=== PATIENT | female | born 2000 | race Caucasian/White ===

== ENCOUNTER 2021-04-19 17:27 | Emergency (ER) | payer BC ==
[~2021-04-19] VITALS: Ht 167.6 cm; Wt 68.2 kg
[2021-04-19 20:17] LABS: BASO % 0.3 % (0.0-2.0); EOS # 0.1 K/mm3 (0.0-0.7); EOS % 0.5 % (0-4.0); GRAN % 85.4 % (42.2-75.2); HEMATOCRIT 42.9 % (35.0-45.0); LYMPH # 0.8 K/mm3 (1.2-3.4); MEAN CELL VOLUME 87 fl (80.0-95.0); MEAN CORPUSCULAR HEMOGLOBIN 28 pg (26.0-32.0); MEAN CORPUSCULAR HGB CONC 33 g/dl (33.0-37.0); MEAN PLATELET VOLUME 9.7 fl (7.4-10.4); MONO # 0.5 K/mm3 (0.1-0.6); MONO % 5.5 % (1.7-9.3); PLATELET COUNT 213 K/mm3 (130-400); RED BLOOD COUNT 4.94 M/mm3 (4.10-5.30); REDCELL DISTRIBUTION WIDTH-CV 14.1 % (11.5-14.5)
[2021-04-19 20:33] LABS: ALBUMIN 3.8 gm/dL (3.5-5.0); BILIRUBIN,TOTAL 0.3 mg/dL (0.2-1.2); C-REACTIVE PROTEIN 3.5 mg/dL (0.00-0.50); CALCIUM 9.3 mg/dL (8.4-10.2); CREATININE, serum 0.83 mg/dL (0.57-1.11); POTASSIUM 3.9 mmol/L (3.5-4.5); TOTAL PROTEIN 7.4 gm/dL (6.2-8.1)
[2021-04-19] MEDS ORDERED: PROTONIX 40MG T40 MG PO (21:17)
[2021-04-19 21:38] VITALS: BP 113/64; PULSE 59; TEMP 97.1
== END 2021-04-19 21:45 | disposition home or self-care (01) ==
LOC: COL.ER 17:27
PROVIDERS: Emergency Medicine
DX: K29.70 Gastritis, unspecified, without bleeding (principal)